=== PATIENT | female | born 1940 | race Caucasian/White ===

== ENCOUNTER 2017-12-30 18:38 | Emergency (ER) | payer MEDICARE, OTHER ==
--- NOTE | 2017-12-30 19:34 | EDM.PDOC ---
ED HPI GENERAL MEDICAL PROBLEM - General Chief Complaint: Abdominal Pain Stated Complaint: ABDOMINAL PAIN Time Seen by Provider: 12/30/17 19:34 - History of Present Illness INITIAL COMMENTS - FREE TEXT/NARRATIVE: 69-year-old female presents emergency room with upper abdominal pain. This patient is been going on for the last several days progressively getting w she is unsure if it makes it better or worse activity does not seem to make it better or worse. She's had no nausea vomiting constipation diarrhea she describes as heartburn is mostly midepigastric and left upper quadrants. She's not any black or tarry stools no diarrhea no constipation. She has not vomited any blood or see blood in her stool. She had no burning or frequency with urination. She has some intermittent reflux is not aware of any chest pain or chest pressure. She still has her gallbladder. Bilateral Upper Abdomen Pain Score (Numeric/FACES): 8 - Related Data Allergies Allergy/AdvReac Type Severity Reaction Status Date / Time No Known Allergies Allergy Verified 12/30/17 18:45 Home Meds: Home Meds Lansoprazole [Prevacid] 30 mg PO Q24H #30 tab. 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 Denies: Anorexia, Black Stool, Bloody Stool, Constipation, Diarrhea, Difficulty Swallowing, Hematemesis, Hematochezia , Melena, Stool Incontinence, Vomiting : Reports: No Symptoms Neurological: Reports: No Symptoms Psychiatric: Reports: No Symptoms Hematologic/Lymphatic: Reports: No Symptoms Immunologic: Reports: No Symptoms ED EXAM, GI/ABD - Physical Exam Exam: See Below Exam Limited By: No Limitations General Appearance: Alert, No Apparent Distress Head: Atraumatic, Normocephalic Neck: Normal Inspection, Supple, Non-Tender, Full Range of Motion, Other Respiratory/Chest: Lungs Clear, Normal Breath Sounds Cardiovascular: Normal Peripheral Pulses, Regular Rate, Rhythm, No Edema, No Murmur GI/Abdominal Exam: Normal Bowel Sounds, Soft, No Organomegaly, Tender (He has some significant epigastric and to a lesser degree right upper quadrant discomfort no left upper quadrant discomfort no rebound or guarding no rigidity) Neurological: Alert, Oriented, Normal Cognition Psychiatric: Normal Affect Lymphatic: No Adenopathy Course - Vital Signs Last Recorded V/S: Last Vital Signs Temp 36.3 C 12/30/17 18:46 Pulse 64 12/30/17 18:46 Resp 18 12/30/17 18:46 BP 197/81 H 12/30/17 18:46 Pulse Ox 97 12/30/17 18:46 - Orders/Labs/Meds Orders: Active Orders 24 hr Category Date Time Status EKG Documentation Completion [RC] STAT Care 12/30/17 19:53 Active Abdomen 2V AP Flat Upright [CR] Stat Exams 12/30/17 19:51 Taken Chest 1V Frontal [CR] Stat Exams 12/30/17 20:58 Taken Ondansetron [Zofran ODT] Med 12/30/17 22:08 Once 4 mg PO ONETIME ONE Medication Orders Ondansetron HCl (Zofran Odt) 4 mg PO ONETIME ONE Stop: 12/30/17 22:09 Labs: Laboratory Tests 12/30/17 12/30/17 12/30/17 Range/Units 19:35 19:35 20:50 WBC 10.98 H (3.98-10.04) K/mm3 RBC 4.15 (3.98-5.22) M/mm3 Hgb 13.0 (11.2-15.7) gm/L Hct 39.1 (34.1-44.9) % MCV 94.2 (79.4-94.8) fl MCH 31.3 (25.6-32.2) pg MCHC 33.2 (32.2-35.5) g/dl RDW Std Deviation 44.2 (36.4-46.3) fL Plt Count 286 (182-369) K/mm3 MPV 10.8 (9.4-12.3) fl Neutrophils % (Manual) 79 H (40-60) % Band Neutrophils % 0 (0-10) % Lymphocytes % (Manual) 16 L (20-40) % Atypical Lymphs % 0 % Monocytes % (Manual) 4 (2-10) % Eosinophils % (Manual) 1 (0.7-5.8) % Basophils % (Manual) 0 L (0.1-1.2) Platelet Estimate Adequate Plt Morphology Comment Normal RBC Morph Comment Normal Sodium 134 L (136-145) mEq/L Potassium 3.7 (3.5-5.1) mEq/L Chloride 100 (98-107) mEq/L Carbon Dioxide 25 (21-32) mEq/L Anion Gap 12.7 (5-15) BUN 10 (7-18) mg/dL Creatinine 0.8 (0.55-1.02) mg/dL Est Cr Clr Drug Dosing 45.84 mL/min Estimated GFR (MDRD) > 60 (>60) mL/min BUN/Creatinine Ratio 12.5 L (14-18) Glucose 108 (83-115) mg/dL Calcium 9.6 (8.5-10.1) mg/dL Total Bilirubin 0.5 (0.2-1.0) mg/dL AST 17 (15-37) U/L ALT 21 (14-59) U/L Alkaline Phosphatase 121 H (46-116) U/L Troponin I < 0.017 (0.00-0.056) ng/mL Total Protein 7.5 (6.4-8.2) g/dl Albumin 4.1 (3.4-5.0) g/dl Globulin 3.4 gm/dL Albumin/Globulin Ratio 1.2 (1-2) Lipase 163 (73-393) U/L Urine Color Yellow (Yellow) Urine Appearance Clear (Clear) Urine pH 7.0 (5.0-8.0) Ur Specific [place] 1.020 (1.005-1.030) Urine Protein Negative (Negative) Urine Glucose (UA) Negative (Negative) Urine Ketones 1+ H (Negative) Urine Occult Blood Negative (Negative) Urine Nitrite Negative (Negative) Urine Bilirubin Negative (Negative) Urine Urobilinogen 0.2 (0.2-1.0) Ur Leukocyte Esterase Negative (Negative) Urine RBC Not seen (0-5) /hpf Urine WBC 0-5 (0-5) /hpf Ur Epithelial Cells 0-5 (0-5) /hpf Urine Bacteria Not seen (FEW) /hpf Urine Mucus Not seen (FEW) /hpf Meds: Medications Generic Name Dose Route Start Last Admin Trade Name Freq PRN Reason Stop Dose Admin Ondansetron HCl 4 mg 12/30/17 22:08 Zofran Odt PO 12/30/17 22:09 ONETIME ONE Discontinued Medications Generic Name Dose Route Start Last Admin Trade Name Freq PRN Reason Stop Dose Admin Al Hydroxide/Mg Hydroxide 30 0 ml 12/30/17 19:50 12/30/17 19:58 ml/ Lidocaine HCl 15 ml PO 12/30/17 19:51 45 ml ONETIME ONE Administration Sucralfate 1 gm 12/30/17 20:59 12/30/17 21:10 Carafate PO 12/30/17 21:00 1 gm ONETIME ONE Administration - Re-Assessments/Exams Free Text/Narrative Re-Assessment/Exam: 12/30/17 22:08 Patient is an minimal improvement with GI cocktail Carafate however she did have some. Further history is every time she eats she gets bloated and developed some right upper quadrant discomfort. At this point we'll give her some Zofran a few Foss to gently use get her scheduled for an outpatient ultrasound. Did discuss getting a CT tonight this would probably be of less benefit. Family the patient understands that were in the middle of a workup and do not have a definitive diagnosis at this point. Departure - Departure Time of Disposition: 22:11 Disposition: Home, Self-Care 01 Clinical Impression: Upper abdominal pain - Discharge Information Prescriptions: Lansoprazole [Prevacid] 30 mg PO Q24H #30 tab.rap. Sucralfate [Carafate] 1 gm PO QID #20 tablet Referrals: PCP,Not In Area [Primary Care Provider] - Forms: ED Department Discharge Additional Instructions: Return to the emergency room with any questions problems worsening symptoms. Follow-up at the [facility] after your ultrasound is done [phone]. Take the medication as directed. Uses Zofran as needed for nausea. Use the pain pill 1/2-1 every 6 hours as needed for pain allow 12 hours after using this medication before driving or returning to work- - My Orders Last 24 Hours: My Active Orders 12/30/17 19:51 Abdomen 2V AP Flat Upright [CR] Stat 12/30/17 19:53 EKG Documentation Completion [RC] STAT 12/30/17 20:58 Chest 1V Frontal [CR] Stat 12/30/17 22:08 Ondansetron [Zofran ODT] 4 mg PO ONETIME ONE - Assessment/Plan Last 24 Hours: My Active Orders 12/30/17 19:51 Abdomen 2V AP Flat Upright [CR] Stat 12/30/17 19:53 EKG Documentation Completion [RC] STAT 12/30/17 20:58 Chest 1V Frontal [CR] Stat 12/30/17 22:08 Ondansetron [Zofran ODT] 4 mg PO ONETIME ONE
[2017-12-30] MEDS ORDERED: Alum Hydrox/Mag Hydrox/Simeth 30 ML, Lidocaine 2% 15 ML PO ONE ×2 (19:50)
[2017-12-30] MEDS ORDERED: Sucralfate Suspension 1 GM/10 ML Cup PO ONE (20:59)
[2017-12-30] MEDS ORDERED: Ondansetron 4 MG Tab.DIS PO ONE (22:08)
--- NOTE | 2018-01-01 07:45 | CR ---
Chest: Portable view of the chest was obtained. Comparison: No prior chest x-ray. Heart size appears within normal limits for portable technique. Tortuous thoracic aorta is seen. Lungs are clear. Bony structures are grossly intact. Impression: 1. Nothing acute is appreciated on portable chest x-ray. Diagnostic code #2
--- NOTE | 2018-01-01 08:19 | CR ---
Abdomen: Supine and upright views of the abdomen were obtained. Comparison: No prior study. Right hip prosthesis is seen. Degenerative change is scattered within the spine. Diffuse vascular calcification is noted. Bowel gas pattern appears normal. No free air is seen. Impression: 1. Incidental findings. Diagnostic code #2
== END 2017-12-30 22:37 | disposition home or self-care (01) ==
LOC: JD.ED 18:38
DX: R10.13 Epigastric pain (principal); R10.11 Right upper quadrant pain; F17.210 Nicotine dependence, cigarettes, uncomplicated; I10 Essential (primary) hypertension
CPT/HCPCS: 36415; 71045; 74019; 80053; 81001; 83690; 84484; 85007; 85027; 93005; 99284; A9270

== ENCOUNTER 2021-01-04 21:17 | Emergency (ER) | payer MEDICARE, OTHER ==
[2021-01-04] MEDS ORDERED: Acetaminophen 325 MG Tab PO ONE (22:54)
--- NOTE | 2021-01-04 23:21 | EDM.PDOC ---
<Jose J Reynolds Norris - Last Filed: 01/05/21 19:03> ED HPI GENERAL MEDICAL PROBLEM - General Chief Complaint: Neuro Symptoms/Deficits Stated Complaint: STROKE SYMPTOMS Time Seen by Provider: 01/04/21 22:00 - Related Data Allergies Allergy/AdvReac Type Severity Reaction Status Date / Time No Known Allergies Allergy Verified 12/30/17 18:45 Home Meds: Home Meds Apixaban [Eliquis] 5 mg PO DAILY 01/05/21 [History] Metoprolol Succinate [Toprol XL 100mg] 100 mg PO DAILY 01/05/21 [History] Pravastatin [Pravachol] 20 mg PO DAILY 01/05/21 [History] Valsartan/Hydrochlorothiazide [Valsartan-Hctz 160-12.5 mg Tab] 1 tab PO DAILY 01/05/21 [History] Course - Re-Assessments/Exams Free Text/Narrative Re-Assessment/Exam: 01/05/21 09:23 MRI of the brain is read by Dr. Garcia as: 1. Mild generalized atrophy. 2. Mild increased signal within the periventricular and subcortical white matter which is most likely due to small vessel ischemic demyelination change. 3. No acute diffusion abnormalities are seen. Notified that based on the MRI results, Dr. Saab does not feel that the patient needs to be admitted. I will discharge her home with the recommendation that she follow-up with a Neurologist for further evaluation. 01/05/21 09:29 The above was discussed with the patient. She is agreeable. Departure - Departure Time of Disposition: 09:29 Disposition: Home, Self-Care 01 Condition: Good Clinical Impression: Episodes of staring, Headache - Discharge Information *PRESCRIPTION DRUG MONITORING PROGRAM REVIEWED*: Not Applicable *COPY OF PRESCRIPTION DRUG MONITORING REPORT IN PATIENT MATT: Not Applicable Instructions: General Headache Without Cause, [id number] Referrals: Carlos Morrow MD [Primary Care Provider] - Boby Guthrie MD [Ordering Only Provider] - Forms: ED Department Discharge Additional Instructions: You were seen in the emergency room after developing an episode of staring, followed by a headache. Work-up in the ER included numerous blood tests, a urinalysis, a swab for the SARS-CoV-2 virus, a CT of your head, a CT angiogram of your head and neck, an MRI of your brain, and an ECG. Your entire work-up was unremarkable. It does not appear that you suffered a TIA or stroke. There is a possibility that your symptoms were due to a migraine or small seizure, therefore we would like you to follow-up with the neurologist Dr. Boby Guthrie, in [place], at the next available appointment. Please call his office to make an appointment. We recommend that you continue to take your current medications, including Eliquis, as prescribed. If any other problems, please do not hesitate to return to the ER. <Mustapha Billings - Last Filed: 01/09/21 18:54> ED HPI GENERAL MEDICAL PROBLEM - General Source of Information: Reports: Patient, Family History Limitations: Reports: No Limitations - History of Present Illness INITIAL COMMENTS - FREE TEXT/NARRATIVE: Patient is an 80-year-old female with a past medical history of high blood pressure on Eliquis presenting with a chief complaint of headache. Patient is accompanied by son. According to son, he became concerned when his mother started having symptoms during dinnertime. This was around 730 this evening. During dinner, patient stared off into space for about 20 seconds and would not respond. This happened several times which is unusual for her to have at all. Earlier in the evening, the patient was well and did not exhibit any complaints or symptoms. Since then, she started complaining of headache. She reports the headache is significant and diffuse. She denies any associated visual changes, nausea, vomiting, chest pain, shortness of breath, weakness in her arms or legs. There is no noted speech deficit. There are concerns about possibility of some confusion according to the son. The patient states now she feels fine and does not remember these episodes. There is no convulsions/seizure-like activity. No incontinence. Patient has been in her normal state of health over the past few days. 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 Musculoskeletal History: Reports: Fracture - Past Surgical History Musculoskeletal Surgical History: Reports: Hip Replacement Social & Family History - Tobacco Use Tobacco Use Status *Q: Never Tobacco User ED ROS GENERAL - Review of Systems Review Of Systems: See Below Free Text/Narrative/Comment: In addition to that documented in the HPI above, the additional ROS was obtained: Constitutional: Denies fevers or chills Eyes: Denies vision changes ENMT: Denies sore throat CV: Denies chest pain Resp: Denies SOB GI: Denies vomiting or diarrhea : Denies painful urination MSK: Denies recent trauma Skin: Denies new rashes Neuro: Denies new numbness or tingling or weakness Endocrine: Denies unexpected weight loss Heme: Denies bleeding disorders ED EXAM, NEURO - Physical Exam Exam: See Below Text/Narrative:: I have reviewed the triage vital signs Const: Well nourished, well developed, appears stated age Eyes: Pupils Equal and reactive to light bilaterally, no conjunctival injection HENT: No signs of trauma or swelling, Neck supple without meningismus CV: Regular Rate Rhythm, Warm, well-perfused extremities RESP: Unlabored respiratory effort GI: soft, non-tender, non-distended, no masses MSK: No gross deformities appreciated Skin: Warm, dry. 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 Speech is normal. Sensation and motor function of all 4 extremities is intact. [id number] normal. Normal recall. Normal object naming. Psych: Appropriate mood and affect. #1 Interpretation EKG Date: 01/04/21 Time: 21:35 Rhythm: NSR Rate (Beats/Min): 78 [place]: Normal P-Wave: Present QRS: Normal ST-T: Normal QT: Normal Comparison: NA - No Prior EKG EKG Interpretation Comments: normal Course - Vital Signs Last Recorded V/S: Last Vital Signs Temp 35.7 C L 01/05/21 09:55 Pulse 74 01/05/21 09:55 Resp 16 01/05/21 09:55 BP 151/65 H 01/05/21 09:55 Pulse Ox 98 01/05/21 09:55 - Orders/Labs/Meds Labs: Laboratory Tests 01/04/21 01/04/21 01/04/21 Range/Units 19:13 19:13 19:13 WBC 9.77 (3.98-10.04) K/mm3 RBC 4.04 (3.98-5.22) M/mm3 Hgb 12.8 (11.2-15.7) gm/dl Hct 39.2 (34.1-44.9) % MCV 97.0 H (79.4-94.8) fl MCH 31.7 (25.6-32.2) pg MCHC 32.7 (32.2-35.5) g/dl RDW Std Deviation 46.3 (36.4-46.3) fL Plt Count 345 (182-369) K/mm3 MPV 10.0 (9.4-12.3) fl Neut % (Auto) 69.2 (34.0-71.1) % Lymph % (Auto) 19.1 L (19.3-51.7) % [place] % (Auto) 9.3 (4.7-12.5) % Eos % (Auto) 1.8 (0.7-5.8) Baso % (Auto) 0.4 (0.1-1.2) % Neut # (Auto) 6.75 H (1.56-6.13) K/mm3 Lymph # (Auto) 1.87 (1.18-3.74) K/mm3 [place] # (Auto) 0.91 H (0.24-0.36) K/mm3 Eos # (Auto) 0.18 (0.04-0.36) K/mm3 Baso # (Auto) 0.04 (0.01-0.08) K/mm3 PT 10.2 (9.7-12.0) SECONDS INR < 0.93 Sodium 131 L (136-145) mEq/L Potassium 4.1 (3.5-5.1) mEq/L Chloride 95 L (98-107) mEq/L Carbon Dioxide 30 (21-32) mEq/L Anion Gap 10.1 (5-15) BUN 15 (7-18) mg/dL Creatinine 0.9 (0.55-1.02) mg/dL Est Cr Clr Drug Dosing 40.55 mL/min Estimated GFR (MDRD) > 60 (>60) mL/min BUN/Creatinine Ratio 16.7 (14-18) Glucose 112 H (70-99) mg/dL POC Glucose (70-99) mg/dL Calcium 8.9 (8.5-10.1) mg/dL Total Bilirubin 0.4 (0.2-1.0) mg/dL AST 22 (15-37) U/L ALT 26 (14-59) U/L Alkaline Phosphatase 100 (46-116) U/L Total Protein 8.0 (6.4-8.2) g/dl Albumin 4.0 (3.4-5.0) g/dl Globulin 4.0 gm/dL Albumin/Globulin Ratio 1.0 (1-2) Urine Color (Yellow) Urine Appearance (Clear) Urine pH (5.0-8.0) Ur Specific [place] (1.005-1.030) Urine Protein (Negative) Urine Glucose (UA) (Negative) Urine Ketones (Negative) Urine Occult Blood (Negative) Urine Nitrite (Negative) Urine Bilirubin (Negative) Urine Urobilinogen (0.2-1.0) Ur Leukocyte Esterase (Negative) Urine RBC (0-5) /hpf Urine WBC (0-5) /hpf Ur Squamous Epith Cells (0-5) /hpf Urine Bacteria (FEW) /hpf Urine Mucus (FEW) /hpf SARS-CoV-2 RNA (EAMON) (NEGATIVE) 01/04/21 01/04/21 01/05/21 Range/Units 21:24 22:20 00:23 WBC (3.98-10.04) K/mm3 RBC (3.98-5.22) M/mm3 Hgb (11.2-15.7) gm/dl Hct (34.1-44.9) % MCV (79.4-94.8) fl MCH (25.6-32.2) pg MCHC (32.2-35.5) g/dl RDW Std Deviation (36.4-46.3) fL Plt Count (182-369) K/mm3 MPV (9.4-12.3) fl Neut % (Auto) (34.0-71.1) % Lymph % (Auto) (19.3-51.7) % [place] % (Auto) (4.7-12.5) % Eos % (Auto) (0.7-5.8) Baso % (Auto) (0.1-1.2) % Neut # (Auto) (1.56-6.13) K/mm3 Lymph # (Auto) (1.18-3.74) K/mm3 [place] # (Auto) (0.24-0.36) K/mm3 Eos # (Auto) (0.04-0.36) K/mm3 Baso # (Auto) (0.01-0.08) K/mm3 PT (9.7-12.0) SECONDS INR Sodium (136-145) mEq/L Potassium (3.5-5.1) mEq/L Chloride (98-107) mEq/L Carbon Dioxide (21-32) mEq/L Anion Gap (5-15) BUN (7-18) mg/dL Creatinine (0.55-1.02) mg/dL Est Cr Clr Drug Dosing mL/min Estimated GFR (MDRD) (>60) mL/min BUN/Creatinine Ratio (14-18) Glucose (70-99) mg/dL POC Glucose 106 H (70-99) mg/dL Calcium (8.5-10.1) mg/dL Total Bilirubin (0.2-1.0) mg/dL AST (15-37) U/L ALT (14-59) U/L Alkaline Phosphatase (46-116) U/L Total Protein (6.4-8.2) g/dl Albumin (3.4-5.0) g/dl Globulin gm/dL Albumin/Globulin Ratio (1-2) Urine Color Yellow (Yellow) Urine Appearance Clear (Clear) Urine pH 7.5 (5.0-8.0) Ur Specific [place] 1.020 (1.005-1.030) Urine Protein Negative (Negative) Urine Glucose (UA) Negative (Negative) Urine Ketones Negative (Negative) Urine Occult Blood Trace-intact H (Negative) Urine Nitrite Negative (Negative) Urine Bilirubin Negative (Negative) Urine Urobilinogen 0.2 (0.2-1.0) Ur Leukocyte Esterase Negative (Negative) Urine RBC 0-5 (0-5) /hpf Urine WBC 0-5 (0-5) /hpf Ur Squamous Epith Cells 5-10 H (0-5) /hpf Urine Bacteria Few (FEW) /hpf Urine Mucus Few (FEW) /hpf SARS-CoV-2 RNA (EAMON) Negative (NEGATIVE) Meds: Medications Discontinued Medications Generic Name Dose Route Start Last Admin Trade Name Freq PRN Reason Stop Dose Admin Acetaminophen 650 mg 01/04/21 22:54 01/04/21 23:13 Acetaminophen 325 Mg Tab PO 01/04/21 22:55 650 mg NOW ONE Administration Sepsis Event Note (ED) - Evaluation Sepsis Screening Result: No Definite Risk - Assessment/Plan Assessment:: Patient is an 80-year-old female presenting to the emergency room with a complaint of headache. There is also concerns about possible neurologic deficit from son although on arrival here, the patient is neurologically intact demonstrating an NIH stroke scale of 0. Her emergency department course was uncomplicated and her headache improved with the administration of Tylenol. Per nursing protocol, a stroke alert was called when patient arrived and patient went emergently down to CT scan which demonstrated no acute findings. Patient did not demonstrate any neurologic deficit, no indication for TPA or other emergent intervention. Patient underwent CT angiogram to evaluate for vascular abnormalities and particularly of the carotids. Laboratory study was performed as well. No significant abnormalities were found. Patient's blood pressure improved with a headache improvement. Likely TIA based on history and evaluation although other considerations include complex migraine, seizure, hypertensive emergency. I spoke with hospitalist regarding management as well as request for observation stay. Ultimately, it was decided that patient can now undergo an MRI in the morning and have the remainder of his work-up completed as an outpatient. This would include echocardiogram possible Holter monitor. At time of routine shift change, patient pending MRI and to be signed out to day team attending to follow-up the study to determine patient's candidacy for outpatient follow-up.
--- NOTE | 2021-01-05 07:18 | CT ---
Head CT Technique: Multiple axial sections through the brain were obtained. Intravenous contrast was not utilized. Reconstructed coronal and sagittal images were obtained. Comparison: No prior intracranial imaging is available. Findings: Ventricles along with basal cisterns and sulci over the convexities are mildly prominent. Minimal areas of diminished density are noted within the periventricular white matter which is compatible with small vessel ischemic demyelination change. No other abnormal parenchymal densities are seen. No evidence of intracranial hemorrhage is seen. No midline shift or mass-effect is seen. Bone window settings were reviewed. No acute calvarial abnormality is seen. Visualized mastoid sinuses and paranasal sinuses show nothing acute. Impression: 1. Senescent change as described above. 2. No acute intracranial abnormality is seen. Diagnostic code #2 I agree with preliminary report from [facility], finalized on 01/04/21, 10:41 PM CDT, code 1
--- NOTE | 2021-01-05 07:20 | CT ---
CT angiogram of the brain Technique: Multiple axial sections through the brain were obtained. Intravenous contrast was utilized during the arterial phase. Multiple MIP images were then obtained. Comparison: No prior CT angiogram study of the brain is available. Findings: Mild atherosclerotic change is seen within the carotid siphon. This causes minimal narrowing on both sides, which is felt to have no clinical significance. Both middle cerebral arteries and anterior cerebral arteries are patent with no focal stenosis or occlusion. Both vertebral arteries are patent. Basilar artery is patent. Both cerebral arteries are patent. No stenosis or occlusion is seen. Impression: 1. Mild atherosclerotic change within the carotid siphon which is felt to be of no clinical significance. 2. Other portions of the CT angiogram study of the brain appear unremarkable. Diagnostic code #2 I agree with preliminary report from [facility], finalized on 01/05/21, 12:24 AM CDT, code 1
--- NOTE | 2021-01-05 07:21 | CT ---
CT angiogram of neck Technique: Multiple axial sections through the neck were obtained. Intravenous contrast was utilized during the arterial phase. Multiple MIP images were then obtained. Comparison: No prior neck angiogram is available. Findings: Both carotid arteries show slight atherosclerotic irregularity without focal stenosis or occlusion. Both carotid bulbs are patent. Proximal external carotid arteries are patent. Internal carotid arteries are patent. No focal stenosis or occlusion is seen. Both vertebral arteries are patent. No focal stenosis or occlusion is seen. Visualized lung apices show a small pleural-based nodule within the right upper lung measuring 5 mm which is most likely incidental. Diffuse disc space narrowing is noted within the cervical spine with diffuse degenerative apophyseal change. Mild area of mucosal thickening is noted within the inferior left maxillary sinus which is felt to be chronic. Impression: 1. No focal stenosis is seen within the neck vessels. 2. Other findings believed to be incidental as described above. Diagnostic code #2 I agree with preliminary report from [facility], finalized on 01/05/21, 12:25 AM CDT, code 1
--- NOTE | 2021-01-05 07:44 | MR ---
MRI brain Technique: Multiple T1 sagittal; T2, T1, T2 FLAIR and diffusion axial; T1 and T2 gradient-echo coronal images were also obtained of the brain. Comparison: Prior head CT study of 01/04/21. Findings: Ventricles along with basal cisterns and sulci over the convexities are mildly prominent. Mucosal thickening is noted within the inferior left maxillary sinus which is believed to be chronic. Normal signal void is seen within the major cerebral arteries within the skull base. On the FLAIR sequence there is mild areas of increased signal being seen within the periventricular white matter and subcortical white matter which is most likely due to small vessel ischemic demyelination change. Diffusion images show no acute diffusion abnormality. Impression: 1. Mild generalized atrophy. 2. Mild increased signal within the periventricular and subcortical white matter which is most likely due to small vessel ischemic demyelination change. 3. No acute diffusion abnormalities are seen. Diagnostic code #2
== END 2021-01-05 11:00 | disposition home or self-care (01) ==
LOC: JD.ED 21:17
DX: R51.9 Headache, unspecified (principal); I10 Essential (primary) hypertension; Z20.822 Contact with and (suspected) exposure to COVID-19; Z79.01 Long term (current) use of anticoagulants
CPT/HCPCS: 36415; 70450; 70496; 70498; 70551; 80053; 81001; 82947; 85025; 85610; 93005; 99284; A9270; U0002